=== PATIENT | male | born 1940 | race Caucasian/White ===

== ENCOUNTER 2016-12-12 11:15 | Emergency (ER) | payer OTHER | END 2016-12-12 13:12 | disposition home or self-care (01) | LOC: FER 11:15 | DX: S46.912A Strain of unspecified muscle, fascia and tendon at shoulder and upper arm level, left arm, initial encounter (principal); I10 Essential (primary) hypertension; Z86.718 Personal history of other venous thrombosis and embolism; Z87.891 Personal history of nicotine dependence; Z79.899 Other long term (current) drug therapy; Z96.641 Presence of right artificial hip joint; Z96.652 Presence of left artificial knee joint; V43.92XA Unspecified car occupant injured in collision with other type car in traffic accident, initial encounter; Y92.410 Unspecified street and highway as the place of occurrence of the external cause | CPT/HCPCS: 73030; J1100 ==

== ENCOUNTER → 2021-02-14 | Day surgery (SDC) | payer MEDICARE, OTHER ==
[~2021-02-14] MED LIST: ALENDRONATE SOD70 MG PO; BENADRYL25 MG PO; CALCIUM WITH V1 EAC2 PO; DICLOFENAC SODI75 MG PO; FENOFIBRATE160 MG PO; MESTINON60 MG PO; MISOPROSTOL200 MCG PO; NEXIUM40 MG PO; PAIN RELIEVER650 MG PO; POTASSIUM99 M1 PO; PRINIVIL10 MG PO; PROSCAR5 M1 PO; PSEUDOEPHEDRINE PO; SIMVASTATIN40 MG PO; STAHIST AD TAB1 EACH PO; TAMSULOSIN HCL0.4 MG PO; WARFARIN SODIUM4 MG PO; WARFARIN SODIUM6 MG PO
[2021-02-14 07:44] LABS: HCT 38.2 % (42.0-52.0); HGB 12.5 g/dl (13.2-18.0); MCH 29.4 pg (25.0-31.0); MCHC 32.7 g/dL (32.0-36.0); MCV 89.9 fL (78.0-100.0); MPV 9.5 fL (6.0-9.5); RBC 4.25 M/uL (4.70-6.00); RDW 13.6 % (11.5-14.0); WBC 5.4 K/uL (4.0-10.5)
[2021-02-14 07:45] LABS: ALBUMIN 3.8 g/dL (3.4-5.0); BILIRUBIN - TOTAL 0.3 mg/dL (0.2-1.0); BUN/CREAT RATIO (CALC) 11.8 RATIO; CREATININE 1.19 mg/dL (0.67-1.17); POTASSIUM 3.7 mmol/L (3.5-5.1); TOTAL PROTEIN 6.8 g/dL (6.4-8.2)
== END | disposition home or self-care (01) ==
LOC: FAS 06:51
PROVIDERS: Surgery
DX: D12.6 Benign neoplasm of colon, unspecified (principal); K57.30 Diverticulosis of large intestine without perforation or abscess without bleeding; K64.8 Other hemorrhoids; M19.90 Unspecified osteoarthritis, unspecified site; J44.9 Chronic obstructive pulmonary disease, unspecified; I10 Essential (primary) hypertension; E78.00 Pure hypercholesterolemia, unspecified; N40.1 Benign prostatic hyperplasia with lower urinary tract symptoms; R33.8 Other retention of urine; M81.0 Age-related osteoporosis without current pathological fracture; I73.9 Peripheral vascular disease, unspecified; M06.9 Rheumatoid arthritis, unspecified; G47.30 Sleep apnea, unspecified; Z87.891 Personal history of nicotine dependence; Z79.01 Long term (current) use of anticoagulants; Z79.899 Other long term (current) drug therapy
CPT/HCPCS: 36415; 80053; 88305; J2704; J7120